=== PATIENT | male | born 1980 | race Caucasian/White ===

== ENCOUNTER 2018-02-27 05:26 | Emergency (ER) | payer MEDICAID | END 2018-02-27 06:17 | disposition home or self-care (01) | LOC: D.ER 05:26 | DX: S01.91XA Laceration without foreign body of unspecified part of head, initial encounter (principal); W26.8XXA Contact with other sharp object(s), not elsewhere classified, initial encounter; Y93.89 Activity, other specified; Y92.89 Other specified places as the place of occurrence of the external cause ==

== ENCOUNTER 2020-02-22 04:14 | Emergency (ER) | payer MEDICAID ==
[~2020-02-22] VITALS: Ht 180.3 cm; Wt 68.2 kg
[~2020-02-22 04:14] MED LIST: HYDROCODON-ACE1 EAC7 PO; NUVIGIL250 MG PO; ULTRAM50 MG PO
[2020-02-22 04:19] VITALS: Ht 180.3 cm; Wt 68.2 kg
[2020-02-22 05:26] LABS: BILIRUBIN NEGATIVE (NEGATIVE); GLUCOSE NEGATIVE (NEGATIVE); KETONE NEGATIVE (NEGATIVE); NITRITE NEGATIVE (NEGATIVE); UROBILINOGEN NORMAL (NORMAL)
[2020-02-22 05:35] LABS: UDS - AMPHET POSITIVE QUAL (NEGATIVE); UDS - BARB NEGATIVE QUAL (NEGATIVE); UDS - BENZO NEGATIVE QUAL (NEGATIVE); UDS - COCAINE NEGATIVE QUAL (NEGATIVE); UDS - OPIATE POSITIVE QUAL (NEGATIVE); UDS - PCP NEGATIVE QUAL (NEGATIVE); UDS - THC POSITIVE QUAL (NEGATIVE)
[2020-02-22 05:35] LABS: BASOPHILS 0.1 % (0-2); EOSINOPHILS 0.2 % (0-7); HEMATOCRIT 42.5 % (42.0-54.0); HEMOGLOBIN 14.4 g/dL (13.5-17.5); IMMATURE GRANULOCYTES 0.2 % (0-5); LYMPHOCYTES 15.7 % (15-50); MCH 31.9 pg (26.0-34.0); MCHC 33.9 g/dL (31.0-37.0); MCV 94.2 fL (80.0-100.0); MEAN PLATELET VOLUME 8.7 fL (7.4-10.4); MONOCYTES 6.8 % (2-11); PLATELET COUNT 220 10x3/uL (130-400); RBC 4.51 10x6/uL (4.20-6.10); RDW 12.9 % (11.5-14.5); WBC 13.1 10x3/uL (4.8-10.8)
[2020-02-22 06:14] LABS: CALC OSMOLALITY 278 mosm/kg (275-300); CALCIUM 8.8 mg/dL (8.5-10.1); CARBON DIOXIDE 29.4 mmol/L (21.0-32.0); CHLORIDE - SERUM 101 mmol/L (98-107); CREATININE - SERUM 0.8 mg/dL (0.6-1.3); GLUCOSE 98 mg/dL (74-106); SODIUM 139 mmol/L (136-145); UREA NITROGEN 15 mg/dL (7-18); eGFR NON AFRICAN AMERICAN > 90 mL/min (90-120)
[2020-02-22 06:21] LABS: ALBUMIN 4.7 g/dL (3.4-5.0); ALKALINE PHOSPHATASE 69 U/L (30-120); ALT (SGPT) 29 U/L (10-68); BILIRUBIN - TOTAL 0.82 mg/dL (0.2-1.3); MAGNESIUM - SERUM 2.3 mg/dL (1.8-2.4)
[2020-02-22 06:38] VITALS: BP 136/89
== END 2020-02-22 06:39 ==
LOC: D.ER 04:14
PROVIDERS: Family Medicine
DX: F23 Brief psychotic disorder (principal); T50.905A Adverse effect of unspecified drugs, medicaments and biological substances, initial encounter; R44.0 Auditory hallucinations